=== PATIENT | female | born 1965 | race Caucasian/White ===

== ENCOUNTER 2020-12-03 20:20 | Emergency (ER) | payer OTHER ==
[~2020-12-03 20:20] MED LIST: CLARITIN10 M2 PO; DICLOFENAC SODI75 MG PO; DOCUSATE CALCI240 MG PO; FEOSOL325 MG PO; FLUOXETINE HCL40 MG PO; LEVOTHYROXINE100 MCG PO; LIDOCAINE 5% P1 EACH TOP; METOPROLOL SUCC50 MG PO; OMEPRAZOLE40 MG PO; PRAVACHOL20 M1 PO; PRINIVIL10 MG PO; TIZANIDINE HCL2 M1 PO; TIZANIDINE HCL2 MG PO; VIBRAMYCIN100 MG PO; VIT D PO; XARELTO10 MG PO; ZOFRAN8 MG PO
== END 2020-12-04 00:24 | disposition home or self-care (01) ==
LOC: FER 20:20
DX: G89.18 Other acute postprocedural pain (principal); M54.5 Low back pain; I10 Essential (primary) hypertension; Z79.899 Other long term (current) drug therapy
CPT/HCPCS: 36415; 72128; 72131; 84484; 93005; J1200

== ENCOUNTER 2021-04-08 18:44 | Emergency (ER) | payer OTHER ==
[2021-04-08 22:09] LABS: BASOPHIL 0.7 % (0-2); EOSINOPHIL 2.3 % (0-5); HCT 34.7 % (37.0-47.0); HGB 10.5 g/dl (12.5-16.0); LYMPHOCYTE 35.3 % (15-48); MCH 26.3 pg (25.0-31.0); MCHC 30.3 g/dL (32.0-36.0); MONOCYTE 8.2 % (0-12); MPV 8.7 fL (6.0-9.5); NEUTROPHIL 53.3 % (41-80); NRBC 0; PLT 349 K/uL (150-400); RBC 3.99 M/uL (4.20-5.40); RDW 16.9 % (11.5-14.0); WBC 5.6 K/uL (4.0-10.5)
[2021-04-08 22:33] LABS: ALBUMIN 4.2 g/dL (3.4-5.0); BILIRUBIN - TOTAL 0.3 mg/dL (0.2-1.0); GLOBULIN (CALCULATION) 4.4 g/dL; POTASSIUM 3.7 mmol/L (3.5-5.1); TOTAL PROTEIN 8.6 g/dL (6.4-8.2)
[2021-04-09] MEDS ORDERED: ONDANSETRON ODT4 MG PO (01:57)
== END 2021-04-09 02:28 | disposition home or self-care (01) ==
LOC: FER 18:44
PROVIDERS: Physician Assistant
DX: R07.89 Other chest pain (principal); I10 Essential (primary) hypertension
CPT/HCPCS: 36415; 71045; 80053; 84484; 85025; 93005; J1170